=== PATIENT | male | born 1970 | race Hispanic/Latino ===

== ENCOUNTER 2016-12-12 08:41 | Emergency (ER) | payer BC ==
[2016-12-12 08:52] VITALS: BMI 35.6
[2016-12-12] MEDS ORDERED: Sodium Chloride 0.9% 500 ML IV STA (09:16)
--- NOTE | 2016-12-12 09:24 | ED PDOC ---
Arrival/HPI - General Chief Complaint: Abdominal Pain Time Seen by Provider: 12/12/16 09:07 Historian: Patient - History of Present Illness Narrative History of Present Illness (Text): 12/12/16 09:06 45 year old male, whose past medical history includes kidney stones, presents to the emergency department complaining of left-sided abdominal pain since 22: 00 last night. Pain is intermittent, sharp, radiates from back. Denies fevers. Denies right sided pain. Denies chest pain or sob. Denies pleuritic pain or cough. Denies change in urine output. Pain similar to past episodes of kidney stones. Denies testicle pain or swelling. PMD: Dr. Mark Mcdaniel Time/Duration: Other (since 22:00 last night) Symptom Onset: Sudden Symptom Course: Unchanged Past Medical History - Provider Review Nursing Documentation Reviewed: Yes - Infectious Disease Hx of Infectious Diseases: None - Tetanus Immunization Tetanus Immunization: Unknown - Reproductive Currently : No - Cardiac Hx Pacemaker: No - Pulmonary Hx Asthma: No Hx Bronchitis: No Hx Chronic Obstructive Pulmonary Disease (COPD): No Hx Emphysema: No - Neurological Hx Paralysis: No - Renal Hx Renal Failure: No - Endocrine/Metabolic Hx Hyperthyroidism: No Hx Hypothyroidism: No - Hematological/Oncological Hx Blood Transfusions: No Hx Blood Transfusion Reaction: No - Musculoskeletal/Rheumatological Hx Musculoskeletal Disorders: No - Gastrointestinal Hx Crohn's Disease: No Hx Diverticulitis: No Hx Gastroesophageal Reflux: No Hx Gastrointestinal Ulcer: No Hx Liver Failure: No - Genitourinary/Gynecological Other/Comment: KIDNEY STONES - Psychiatric Hx Emotional Abuse: No Hx Physical Abuse: No Hx Substance Use: No - Surgical History Hx Amputation: No Hx Appendectomy: No Hx Cardiac Catheterization: No Hx Cholecystectomy: No Hx Coronary Stent: No Hx Gastric Bypass Surgery: No Hx Hysterectomy: No Hx Inguinal Hernia Repair: No Hx Joint Replacement: No Hx Kidney Transplant: No Hx Liver Transplant: No Hx Mastectomy: No Hx Open Heart Surgery: No Hx Orthopedic Surgery: Yes (BILATERAL ANKLE SX; TORN LIGAMENTS) Hx Splenectomy: No Hx Tonsillectomy: No Hx Tubal Ligation: No Hx Valve Replacement: No - Anesthesia Hx Anesthesia Reactions: Yes (NAUSEA) Hx Malignant Hyperthermia: No - Suicidal Assessment Feels Threatened In Home Enviroment: No Family/Social History - Physician Review Nursing Documentation Reviewed: Yes Family/Social History: No Known Family HX Smoking Status: Never Smoked Hx Alcohol Use: Yes (OCCASIONAL) Hx Substance Use: No Hx Substance Use Treatment: No Allergies/Home Meds Allergies/Adverse Reactions: Allergies Penicillins Allergy (Severe, Verified 12/12/16 08:52) URTICARIA Sulfa (Sulfonamide Antibiotics) Allergy (Severe, Verified 12/12/16 08:52) URTICARIA Review of Systems - Review of Systems Constitutional: absent: Fatigue, Fevers Eyes: absent: Vision Changes Respiratory: absent: SOB Cardiovascular: absent: Chest Pain, DUFFY Gastrointestinal: Abdominal Pain (left-sided abdominal pain), Nausea, Vomiting. absent: Diarrhea, Hematemesis Genitourinary Male: Dysuria. absent: Frequency, Hematuria, Urinary Output Changes Musculoskeletal: Back Pain. absent: Arthralgias, Neck Pain Skin: absent: Pruritis Neurological: absent: Dizziness, Focal Weakness Endocrine: absent: Polyuria Hemo/Lymphatic: absent: Easy Bleeding Physical Exam - Physical Exam Narrative Physical Exam (Text): Head: Atraumatic. Normocephalic. Eyes: PERRL. EOMI. Conjunctivae are not pale. ENT: Mucous membranes are moist and intact. Oropharynx is clear and symmetric. Neck: Supple. Full ROM. No JVD. No lymphadenopathy. Cardiovascular: Regular rate. Regular rhythm. No murmurs, rubs, or gallops. Distal pulses are 2+ and symmetric. Pulmonary/Chest: No evidence of respiratory distress. Clear to auscultation bilaterally. No wheezing, rales or rhonchi. Abdominal: Soft and non-distended. No inguinal hernia. No pulsatile masses. No rebound, guarding, or rigidity. No organomegaly. Good bowel sounds. Mild LUQ abdominal pain. Genitourinary: no history of testicular pain or swelling. Back: No CVA tenderness. Extremities: No edema. No cyanosis. No clubbing. Full range of motion in all extremities. No calf tenderness. Skin: Skin is warm and dry. Neurological: Alert, awake. Motor and sensory exam intact. Psychiatric: Good eye contact. Normal interaction, affect, and behavior. Vital Signs Reviewed: Yes Vital Signs Temp Pulse Resp BP Pulse Ox 12/12/16 12:25 71 18 132/71 97 12/12/16 11:00 98.2 F 74 18 136/75 97 Temperature: Afebrile Appearance: Positive for: Uncomfortable Pain Distress: Moderate Mental Status: Positive for: Alert and Oriented X 3 Medical Decision Making ED Course and Treatment: 12/12/16 09:14 Impression: 45 year old male with left-sided abdominal pain. Differential Diagnosis included but are not limited to: Kidney Stones vs. Urinary Tract Infection Plan: -- Abd/Pelvis CT -- Labs -- Urinalysis -- Toradol -- IV Fluids -- Reassess and disposition Prior Visits: Notes and results from previous visits were reviewed. Patient was last seen in the emergency department on 08/21/2013 for LLQ pain. Patient was discharged home. Progress Notes: Patient reports sudden on set of left sided back/abdominal pain, similar to past episodes of kidney stones. No chest pain or sob. No exertional symptoms. Pain not worse with meals. On exam, mild left sided abdominal pain, colicky. CT ordered CT suggestive of left sided uvj stone with hydronephrosis. 12/12/16 12:43 On reexamination, patient initially has improved with Toradol, but pain subsequently returned and became more severe. Additional Morphine has been ordered. At this time, patient's symptoms will be observed in the emergency department. On re-exam, pain completely resolved. Afebrile. No fever. No cva tenderess, able to urinate. Will d/c with pain meds, flomax, advised follow-up with his urologist. - Lab Interpretations Lab Results: 12/12/16 09:45 12/12/16 09:45 Lab Results 12/12/16 09:45: Sodium 134, Potassium 4.4, Chloride 100, Carbon Dioxide 19 L, Anion Gap 19, BUN 17, Creatinine 0.9, Est GFR ( Amer) > 60, Est GFR (Non- Af Amer) > 60, Random Glucose 265 H, Calcium 9.1, Total Bilirubin 0.8, AST 24, ALT 40, Alkaline Phosphatase 69, Total Protein 6.8, Albumin 4.0, Globulin 2.8, Albumin/Globulin Ratio 1.4 12/12/16 09:45: Urine Color Yellow, Urine Appearance Clear, Urine pH 6.0, Ur Specific [place] 1.020, Urine Protein Negative, Urine Glucose (UA) >=1000, Urine Ketones Trace H, Urine Blood Large H, Urine Nitrate Negative, Urine Bilirubin Negative, Urine Urobilinogen 0.2, Ur Leukocyte Esterase Negative, Urine RBC 25 - 30, Urine WBC 0 - 2, Ur Epithelial Cells 0 - 2 12/12/16 09:45: WBC 8.9, RBC 4.87, Hgb 14.4, Hct 40.5 L, MCV 83.2, MCH 29.6, MCHC 35.6, RDW 12.5, Plt Count 178, MPV 9.8, Gran % 76.8 H, Lymph % (Auto) 15.2 L, [place] % (Auto) 7.3 H, Eos % (Auto) 0.6 L, Baso % (Auto) 0.1, Gran # 6.85 H, Lymph # 1.4, [place] # 0.7 H, Eos # 0.1, Baso # 0.01 I have reviewed the lab results: Yes - RAD Interpretation Radiology Orders: 12/12/16 09:16 ABD & PELVIS W/O PO OR IV CONT [CT] Stat - Medication Orders Current Medication Orders: Discontinued Medications Sodium Chloride (Sodium Chloride 0.9%) 500 mls @ 1,000 mls/hr IV .Q30M STA Stop: 12/12/16 09:45 Last Admin: 12/12/16 09:33 Dose: 1,000 mls/hr eMAR Start Stop Document 12/12/16 09:33 AD (Rec: 12/12/16 09:33 AD [id number]) Intravenous Solution Start Date 12/12/16 Start Time 09:33 End Date 12/12/16 End time 10:36 Total Infusion Time 63 Sodium Chloride (Sodium Chloride 0.9%) 1,000 mls @ 100 mls/hr IV .Q10H LEILANI Ketorolac Tromethamine (Toradol) 30 mg IVP ONCE ONE Stop: 12/12/16 09:17 Last Admin: 12/12/16 09:32 Dose: 30 mg MAR Pain Assessment Document 12/12/16 09:32 AD (Rec: 12/12/16 09:33 AD [id number]) Pain Reassessment Is this a pain reassessment? No Presence of Pain Presence of Pain Yes Pain Scale Used Pain Scale Used Numeric Description Pain Behavior Facial Grimacing IVP Administration Document 12/12/16 09:32 AD (Rec: 12/12/16 09:33 AD [id number]) Charges for Administration # of IVP Administrations 1 Morphine Sulfate (Morphine) 2 mg IVP STAT STA Stop: 12/12/16 11:43 Last Admin: 12/12/16 11:53 Dose: 2 mg MAR Pain Assessment Document 12/12/16 11:53 AD (Rec: 12/12/16 11:55 AD [id number]) Pain Reassessment Is this a pain reassessment? Yes Sleep Is patient sleeping during reassessment? No Presence of Pain Presence of Pain Yes Pain Scale Used Pain Scale Used Numeric Description Intensity of Pain at present 7 IVP Administration Document 12/12/16 11:53 AD (Rec: 12/12/16 11:55 AD [id number]) Charges for Administration # of IVP Administrations 1 - Scribe Statement The provider has reviewed the documentation as recorded by the Km Kumar Provider Scribe Attestation: All medical record entries made by the Scribe were at my direction and personally dictated by me. I have reviewed the chart and agree that the record accurately reflects my personal performance of the history, physical exam, medical decision making, and the department course for this patient. I have also personally directed, reviewed, and agree with the discharge instructions and disposition. Disposition/Present on Arrival - Present on Arrival Any Indicators Present on Arrival: No History of DVT/PE: No History of Uncontrolled Diabetes: No Urinary Catheter: No History of Decub. Ulcer: No History Surgical Site Infection Following: None - Disposition Have Diagnosis and Disposition been Completed?: Yes Diagnosis: Kidney stone on left side Disposition: HOME/ ROUTINE Disposition Time: 13:00 Patient Plan: Discharge Condition: GOOD Discharge Instructions (ExitCare): Kidney Stones (ED), Renal Colic (ED) Additional Instructions: For any abdominal pain, any nausea, any vomiting, any fevers, any difficulty urinating, any bloody urine or stool, any testicular pain or swelling, any persistent or worsening of symptoms, get rechecked. Follow-up with your urologist in 1-2 days. Take pain medication as needed for severe pain. Use Percocet with caution, do not drive or operate heavy machinery while taking this medication. Prescriptions: Tamsulosin [Flomax] 0.4 mg PO DAILY #5 cap oxyCODONE/Acetaminophen [Percocet 5/325 mg Tab] 1 ea PO Q6 PRN #10 tab PRN Reason: severe pain Referrals: Andrew Carlos MD [Staff Provider] - Follow up with primary Mark Mcdaniel MD [Primary Care Provider] - Follow up with primary Forms: [employer] (Bulgarian)
[2016-12-12 10:06] LABS: BASO # 0.01 K/mm3 (0.0-2.0); BASO % 0.1 % (0.0-3.0); EOS # 0.1 (0.0-0.7); EOS % 0.6 % (1.5-5.0); GRAN # 6.85 (1.4-6.5); GRAN % 76.8 % (50.0-68.0); HEMATOCRIT 40.5 % (42.0-52.0); LYMPH # 1.4 (1.2-3.4); LYMPH % 15.2 % (22.0-35.0); MEAN CELL VOLUME 83.2 fl (80.0-105.0); MEAN CORPUSCULAR HEMOGLOBIN 29.6 pg (25.0-35.0); MEAN CORPUSCULAR HGB CONC 35.6 g/dl (31.0-37.0); MEAN PLATELET VOLUME 9.8 fl (7.0-11.0); MONO # 0.7 (0.1-0.6); MONO % 7.3 % (1.0-6.0); RED CELL DISTRIBUTION WIDTH 12.5 % (11.5-14.5); WHITE BLOOD COUNT 8.9 10^3/ul (4.5-11.0)
[2016-12-12 10:07] LABS: ALB/GLOB RATIO 1.4 (1.1-1.8); ALKALINE PHOSPHATASE 69 U/L (38-126); ALT/SGPT 40 U/L (7-56); AST/SGOT 24 U/L (17-59); BILIRUBIN,TOTAL 0.8 mg/dL (0.2-1.3); BLOOD UREA NITROGEN 17 mg/dL (7-21); CALCIUM 9.1 mg/dL (8.4-10.5); CARBON DIOXIDE 19 mmol/L (21-33); CHLORIDE 100 mmol/L (98-107); GFR AFRICAN-AMERICAN > 60; GLUCOSE,RANDOM 265 mg/dL (70-110); POTASSIUM 4.4 mmol/L (3.6-5.0); SODIUM 134 mmol/L (132-148); TOTAL PROTEIN 6.8 g/dL (5.8-8.3); URINE BILIRUBIN NEGATIVE (NEGATIVE); URINE BLOOD LARGE (NEGATIVE); URINE GLUCOSE (UA) >=1000 mg/dL (NEGATIVE); URINE KETONE TRACE mg/dL (NEGATIVE); URINE LEUKOCYTE ESTERASE NEGATIVE Leu/uL (NEGATIVE); URINE PROTEIN NEGATIVE mg/dL (<30 mg/dL); URINE UROBILINOGEN 0.2 E.U./dL (<1 E.U./dL)
[2016-12-12 10:09] LABS: URINE APPEARANCE CLEAR (CLEAR); URINE COLOR YELLOW (YELLOW)
[2016-12-12 10:12] LABS: URINE EPITHELIAL CELLS 0 - 2 /hpf (0-5); URINE RBC 25 - 30 /hpf (0-2); URINE WBC 0 - 2 /hpf (0-6)
--- NOTE | 2016-12-12 10:57 | CT ---
PROCEDURE: CT abdomen and pelvis dated 12/12/2016 HISTORY: Left flank pain. COMPARISON: Comparison made with CT scan abdomen pelvis 08/22/2013 TECHNIQUE: Contiguous axial images of the abdomen and pelvis without oral or intravenous contrast material. Coronal and Sagittal reformats generated. Radiation dose: Total exam DLP = 1099.9 the mGy-cm. This CT exam was performed using one or more of the following dose reduction techniques: Automated exposure control, adjustment of the mA and/or kV according to patient size, and/or use of iterative reconstruction technique. FINDINGS: LOWER THORAX: There is a small hiatal hernia. No infiltrate effusion or basilar pneumothorax. Heart size is mildly enlarged. No significant pericardial effusion. LIVER: The liver is markedly enlarged measuring approximately 25 cm in CC dimension. GALLBLADDER AND BILE DUCTS: Unremarkable. PANCREAS: Unremarkable. No mass. No ductal dilatation. SPLEEN: Spleen is enlarged measuring nearly 16 cm in AP dimension. ADRENALS: Unremarkable. KIDNEYS AND URETERS: There is mild left-sided hydronephrosis secondary to at least 2 small calculi, both of which appear to be located in the intramural portion distal left UVJ the largest measuring approximately 3.5 mm and the 2nd measuring approximately 3.2 mm. Infiltration changes are seen within the perinephric and periureteric fat There is small 2.6 mm nonobstructing calculus lower pole right kidney BLADDER: As above. REPRODUCTIVE: Unremarkable. APPENDIX: Normal appendix. BOWEL: Evaluation of the bowel is limited due to the lack of oral contrast material. Stomach is incompletely distended. Visualized loops of small bowel exhibit normal contour and caliber. No evidence of acute mechanical small bowel obstruction. Colon appears grossly unremarkable. PERITONEUM: Unremarkable. No fluid collection. No free air. . There is a large amount of mesenteric fat consistent with central obesity pattern. Tiny fat containing umbilical hernia. LYMPH NODES: Unremarkable. No enlarged lymph nodes. VASCULATURE: Unremarkable. No aortic aneurysm. BONES: Multilevel degenerative spondylosis of the lumbar and lower thoracic spine. OTHER FINDINGS: None. IMPRESSION: There are 2 small calculi which appear to be located in the intramural portion of the left UVJ with mild left-sided hydronephrosis. . 2.6 mm nonobstructing calculus lower pole right kidney Marked hepatosplenomegaly. Central obesity pattern. Tiny fat containing umbilical hernia.
[2016-12-12 11:01] VITALS: RESP 18; TEMP 98.2; O2SAT 97
[2016-12-12] MEDS ORDERED: Morphine 2 mg/ml ISec IVP STA (11:42)
[2016-12-12 12:26] VITALS: BP 132/71; PULSE 71
[2016-12-12] MEDS ORDERED: Sodium Chloride 0.9% 1,000 ML IV SCH (12:45)
== END 2016-12-12 13:29 | disposition home or self-care (01) ==
LOC: ED 08:41
DX: N20.0 Calculus of kidney (principal); Z88.0 Allergy status to penicillin
CPT/HCPCS: 74176; 80053; 81001; 85025; 96361; 96374; 96375; 99285; J1885; J2270; J7040